=== PATIENT | female | born 1975 | race Caucasian/White ===

== ENCOUNTER 2018-11-19 21:32 | Emergency (ER) | payer MEDICAID ==
[2018-11-19] MEDS: morphine 4 MG/ML VIAL IV ×3 (21:55→23:47)
[2018-11-19] MEDS: SOD CHLORIDE 0.9% 1,000 ML IV (22:02)
[2018-11-19] MEDS: KETOROLAC 15 MG INJ IV (22:02)
[2018-11-19 22:03] LABS: ADD MAN DIFF? NO
[2018-11-19] MEDS: ONDANSETRON 4 MG INJ IV ×2 (22:03→23:34)
[2018-11-19 22:07] LABS: BASOPHIL # 0.1 10^3/ul (0.0-0.1); BASOPHILS % 0.4 % (0.0-2.0); EOSINOPHILS # 0.2 10^3/ul (0.0-0.5); EOSINOPHILS % 1.4 % (0.0-7.0); HEMATOCRIT 38.8 % (37.0-47.0); HEMOGLOBIN 13.4 g/dl (12.0-16.0); LYMPHOCYTES % 22.7 % (15.0-51.0); MEAN CORPUSCULAR HEMOGLOBIN 32.4 pg (29.0-33.0); MEAN CORPUSCULAR HGB CONC 34.5 g/dl (32.0-37.0); MEAN CORPUSCULAR VOLUME 93.7 fl (82.0-101.0); MEAN PLATELET VOLUME 10.6 fl (7.4-10.4); MONOCYTE # 0.8 10^3/ul (0.3-0.9); MONOCYTES % 5.8 % (0.0-11.0); NEUTROPHIL # 9.2 10^3/ul (1.6-7.5); NEUTROPHILS % 69.4 % (39.0-77.0); PLATELET COUNT 260 10^3/UL (140-415); RED BLOOD COUNT 4.14 10^6/ul (4.20-5.40); RED CELL DISTRIBUTION WIDTH 12.1 % (11.5-14.5)
[2018-11-19 22:07] LABS: WHITE BLOOD COUNT 13.2 10^3/ul (4.8-10.8)
[2018-11-19 22:23] LABS: ALANINE AMINOTRANSFERASE 29 IU/L (13-69); ALBUMIN 4.3 g/dl (3.3-4.9); ALBUMIN/GLOBULIN RATIO 1.13; ALKALINE PHOSPHATASE 94 IU/L (42-121); ANION GAP 12 (5-13); ASPARTATE AMINO TRANSFERASE 26 IU/L (15-46); BILIRUBIN,INDIRECT 0.6 mg/dl (0-1.1); BILIRUBIN,TOTAL 0.6 mg/dl (0.2-1.3); BLOOD UREA NITROGEN 21 mg/dl (7-20); CALCIUM 9.2 mg/dl (8.4-10.2); CARBON DIOXIDE 23 mmol/L (21-31); CHLORIDE 105 mmol/L (97-110); CREATININE 0.66 mg/dl (0.44-1.00); Estimated GFR > 60 mL/min (>60); GLUCOSE 133 mg/dl (70-220); LIPASE 113 U/L (23-300); POTASSIUM 3.1 mmol/L (3.5-5.1); SODIUM 140 mmol/L (135-144); TOTAL PROTEIN 8.1 g/dl (6.1-8.1)
== END 2018-11-20 00:04 | disposition home or self-care (01) ==
LOC: E/R 11-20 00:04
DX: K80.50 Calculus of bile duct without cholangitis or cholecystitis without obstruction (principal)
CPT/HCPCS: 36415; 76705; 80053; 81025; 83690; 85025; 96374; 96375; 96376; 99285-25